=== PATIENT | male | born 1965 | race Caucasian/White ===

== ENCOUNTER 2016-04-30 15:02 | Emergency (ER) | payer MEDICARE, MEDICAID ==
[~2016-04-30] VITALS: Ht 180.3 cm; Wt 100.0 kg
[~2016-04-30 15:02] MED LIST: ATEN50TA7 PO; LAMO250T PO; LOVA10TA PO; QTP100T PO; ZAN150T PO; [UNRECOGNIZED DRUG - CODE] PO
[2016-04-30 15:13] VITALS: BP 190/109; PULSE 80; RESP 18; O2SAT 98
--- NOTE | 2016-04-30 15:40 | ED.REPORT ---
HPI-Altered Mental Status Date of Service Apr 30, 2016 ED Provider: Sandy Ferguson MD This is a 51 year old male with a history of hypertension presenting to the emergency department accompanied by mother complaining of abnormal behavior that began 4 days ago. Pt states, "I have not ewelina myself." Reports that began after taking prazosin. Pt unable to provide clear history. Mother states he is not himself. Pt denies illicit drug use, EtOH use, fever, headache, vision changes, nausea, vomiting, numbness, or weakness. He proceeds to say, "I think I am okay." Nursing Notes Stated Complaint: MENTAL STATUS, CONFUSION, SPEECH Chief Complaint: General Complaint Nursing Notes Reviewed: Yes Allergies: Coded Allergies: No Known Allergies (Verified , 04/30/16) Scheduled Atenolol-Expunged Drug, Do Not Renew! (Atenolol-Expunged Drug, Do Not Renew!) 50 Mg Tablet 50 MG PO DAILY LAMOTRIGINE-Expunged Drug, Do Not Renew! (LAMICTAL XR-Expunged Drug, Do Not Renew!) 250 Mg Tab.er.24 150 MG PO HS Lovastatin-Expunged Drug, Do Not Renew! (Lovastatin-Expunged Drug, Do Not Renew! ) 10 Mg Tablet 10 MG PO HS Methylphenidate-Expunged Drug, Do Not Renew! (Ritalin-Expunged Drug, Do Not Renew!) 20 Mg Tablet 20 MG PO BID QUEtiapine-Expunged Drug, Do Not Renew! (SEROquel-Expunged Drug, Do Not Renew!) 100 Mg Tablet 150 MG PO HS Ranitidine 150 MG Tablet (Zantac 150 MG Tablet) 150 Mg Tab 150 MG PO BID General Time Seen by MD: 15:35 Chief Complaint Not acting right Hx Obtained From: Patient Arrived By: Walk-in Sudden in Onset?: Yes Onset Occurred: 4 days ago Symptom Duration: Since onset Severity: Current: No pain currently Pertinent Negative: Pt denies other symptoms Recent Healthcare: No recent doctor visit, No recent hospitalization Similar Sx Previous: No Risk Factors NIH Stroke Scale NIHSS Score: 0 Time NIHSS Performed: 15:51 Date NIHSS Performed: Apr 30, 2016 Past Medical History Past Medical History PTSD Reports: Hypertension Past Surgical History Denies Social History Alcohol Use: Denies alcohol use Drug Use: Denies drug use Ambulatory Status Independent Review of Systems Unable to Obtain ROS Mental status (limited ) Respiratory: Denies: Non-productive cough, Shortness of breath GI: Denies: Abdominal pain, Constipation, Diarrhea, Nausea, Vomiting Neurologic: Denies: Headache, Numbness Psychiatric: Reports: Confusion Physical Exam Initial Vital Signs Vital Signs (First) Date Time Temp Pulse Resp B/P Pulse Ox O2 Delivery O2 Flow Rate FiO2 04/30/16 15:13 36.5 80 18 190/109 98 Room Air Initial VS: Reviewed ENT: Mucous membranes moist, Conjunctiva normal, No scleral icterus Extremities: Vascular intact, Neuro intact, No swelling, No tenderness Skin: Warm General/Constitutional: Awake Head / Eyes: PERRL Neck: Atraumatic, Supple, No meningismus, Full range of motion, No swelling, Non-tender, No midline vertebral tend, No masses, No carotid bruit, Thyroid NL Respiratory / Chest: Breath sounds NL, Breath sounds = bilat, No respiratory distress, No rales, No rhonchi, No wheezing Cardiovascular: Heart rate NL, Regular rhythm, Heart sounds NL, Peripheral circulation NL Neurologic: No motor deficits, No sensory deficits, CN II - XII intact Psychiatric: No hallucinations Rapid, presssured speech, slightly bizarre affect, requires redirection. Interpretation & Diagnostics BRAIN CT IMPRESSION: Normal for age source of altered mental status is not seen. Dictated by: Moose Bentley M.D. on 04/30/2016 at 16:47 Approved by: Moose Bentley M.D. on 04/30/2016 at 16:47 CHEST X-RAY IMPRESSION: Large lung volumes on the lateral view, suspect COPD, no definite pneumonia found. Dictated by: Moose Bentley M.D. on 04/30/2016 at 16:38 Approved by: Moose Bentley M.D. on 04/30/2016 at 16:38 Lab Results Interpretation Result Diagram: 04/30/16 1620 04/30/16 1620 Test 04/30/16 16:20 White Blood Count 11.3th/mm3 (3.8-10.1) Red Blood Count 5.51mil/mm3 (4.40-5.80) Hemoglobin 16.2g/dL (13.8-17.2) Hematocrit 45.8% (41.0-50.0) Mean Corpuscular Volume 83.1fL (81-100) Mean Corpuscular Hemoglobin 29.4pg (27.0-35.0) Mean Corpuscular Hemoglobin Concent 35.4% (32.0-37.0) Red Cell Distribution Width 13.1% (12.3-15.4) Platelet Count 256bil/L (150-400) Neutrophils (%) (Auto) 69.5% (40-74) Lymphocytes (%) (Auto) 19.6% (14-46) Monocytes (%) (Auto) 7.8% (4-12) Eosinophils (%) (Auto) 2.4% (0-5) Basophils (%) (Auto) 0.4% (0-3) Urine Color Yellow (YELLOW) Urine Appearance Clear (CLEAR,HAZY) Urine pH 6.0 (5.0-8.0) Urine Specific [place] 1.020 (1.003-1.035) Urine Protein Negativemg/dL (NEG,TRACE) Urine Glucose (UA) Negativemg/dL (NEGATIVE) Urine Ketones Negativemg/dL (NEGATIVE) Urine Occult Blood Negative (NEGATIVE) Urine Nitrite Negative (NEGATIVE) Urine Bilirubin Negative (NEGATIVE) Urine Urobilinogen Normalmg/dL (NORMAL) Urine Leukocyte Esterase Negative (NEGATIVE) Urine RBC 0-2/hpf (0-2) Urine WBC 0-5/hpf (0-5) Urine Epithelial Cells Occasional/hpf (NONE-MOD) Urine Crystals None seen (NONE SEEN) Urine Bacteria None/hpf (NONE-FEW) Urine Hyaline Casts None/lpf (NONE) Urine Granular Casts None seen (NONE SEEN) Urine Waxy Casts None seen (NONE SEEN) Urine Red Blood Cell Casts None seen (NONE SEEN) Urine White Blood Cell Casts None seen (NONE SEEN) Urine Mucus None seen (None Seen) Urine Trichomonas None seen (NONE SEEN) Urine Yeast None (NONE SEEN) Urinalysis Comment None Urine Culture Reflexed Not indicated Sodium Level 140mEq/L (134-144) Potassium Level 4.0mEq/L (3.5-5.2) Chloride Level 103mEq/L (97-108) Carbon Dioxide Level 24mmol/L (18-29) Blood Urea Nitrogen 14mg/dL (6-24) Creatinine 0.72mg/dL (0.76-1.27) Estimat Glomerular Filtration Rate 122mL/min (>59) Glucose Level 93mg/dL (60-99) Calcium Level 8.9mg/dL (8.5-10.1) Magnesium Level 2.1mg/dL (1.6-2.6) Total Bilirubin 0.6mg/dL (0.0-1.2) Aspartate Amino Transf (AST/SGOT) 23U/L (0-50) Alanine Aminotransferase (ALT/SGPT) 36U/L (0-44) Alkaline Phosphatase 67U/L (25-150) Total Protein 7.2g/dL (6.4-8.4) Albumin 4.7g/dL (3.4-5.0) Thyroid Stimulating Hormone (TSH) 2.150uIU/mL (0.450-4.500) Free Thyroxine 1.19ng/dL (0.82-1.77) Hold Romero Top Tube Received (Received) Salicylates Level < 3.0ug/mL (30-250) Acetaminophen Level < 15.0ug/mL Rx (10-25) Alcohol, Quantitative < 10mg/dL (0-10) ECG Interpretation ECG Interpretation: NSR at a rate of [address] elevation T-wave inversion in AVR Time: 16:29 Interpreted by: ED physician Re-Eval/Medical Decision Med Decision/Clinical Course 51-year-old male with past medical history of PTSD, ADHD, depression, hypertension brought in by his mother with concern for altered mental status. Differential diagnosis includes but is not limited to methamphetamine intoxication versus other medication overdose versus alcohol withdrawal versus electrolyte abnormality. Tox screen is positive for amphetamines. CT head is normal. CBC and CMP are unremarkable. While patient is not acting completely normally at this time, he is also not gravely disabled. He has no SI or HI. I feel he is safe to go home. I have advised him that the amphetamine he is taking for his ADHD may be causing him to feel confused. I have advised him not to take anymore. He is aware and amenable to discharge and will follow up with his primary care physician. Re-Evaluation/Progress : Time of Eval: 17:25 Re-Evaluation/Progress Note: Discussed lab and imaging results with pt. Plan for discharge, all questions addressed. Counseled Regarding: Diagnosis, Lab results, Need for follow-up, When/why to return to ED Patient Discharge & Departure Impression: Primary Impression: Bizarre behavior Disposition: Home Discharge Condition All VS Reviewed: Yes Condition: Stable Additional Instructions: Your lab and imaging results were reassuring today. Follow up with your primary care provider, call tomorrow to schedule an appointment. Return to the emergency department if you develop any new or worsening symptoms. Referrals: Janet Marti PA-C (PCP) Scribe Attestation Portions of this note were transcribed by Boom Fernandez. I, Dr. Ferguson personally performed the history, physical exam and medical decision-making; I reviewed and confirmed the accuracy of the information in the transcribed note. Signed by: Boom Fernandez. 04/30/2016, 23:00. Sandy Ferguson MD Apr 30, 2016 15:40 BOOM FERNANDEZ Apr 30, 2016 15:53
[2016-04-30] MEDS ORDERED: 0.9% Sodium Chloride 1,000 ML IV ONE (15:54)
[2016-04-30 16:32] LABS: BASOPHILS % (AUTO) 0.4 % (0-3); EOSINOPHILS % (AUTO) 2.4 % (0-5); MONOCYTES % (AUTO) 7.8 % (4-12); Mean Corpuscular Hemoglobin 29.4 pg (27.0-35.0); Mean Corpuscular Volume 83.1 fL (81-100); NEUTROPHILS % (AUTO) 69.5 % (40-74); Platelet Count 256 bil/L (150-400)
--- NOTE | 2016-04-30 16:40 | DRSVH ---
PROCEDURE: X-RAY CHEST, TWO VIEWS ([id number]) INDICATIONS: altered TECHNIQUE: 2 views of the chest were acquired. COMPARISON: [facility], , CHEST 1VW (PORTABLE), 12/23/2011, 19:32. [facility], CR, CHEST 1VW (PORTABLE), 08/20/2011, 20:28. FINDINGS: Surgical changes and devices: None. Lungs and pleura: No pleural effusions or pneumothorax. Lungs are clear. Mediastinum: Mediastinal contours are normal. Heart size is normal. Bones and chest wall: No suspicious bony abnormalities. Soft tissues appear unremarkable. IMPRESSION: Large lung volumes on the lateral view, suspect COPD, no definite pneumonia found. Dictated by: Moose Bentley M.D. on 04/30/2016 at 16:38 Approved by: Moose Bentley M.D. on 04/30/2016 at 16:38
--- NOTE | 2016-04-30 16:49 | DRSVH ---
PROCEDURE: CT BRAIN WITHOUT CONTRAST ([id number]) INDICATIONS: altered TECHNIQUE: Noncontrast 4.5 mm thick angled axial sections acquired from the foramen magnum to the vertex, with c oronal reformats. COMPARISON: None. FINDINGS: Image quality: Excellent. CSF spaces: Basal cisterns are patent. No extra-axial fluid collections. Ventricles are normal in size and shape. Brain: No midline shift. No intracranial masses or hemorrhage. Boyd-white matter interface is norm al. Skull and face: Calvarium and visualized facial bones are intact, without suspicious lesions. Sinuses: Visualized sinuses and mastoids are clear. IMPRESSION: Normal for age source of altered mental status is not seen. Dictated by: Moose Bentley M.D. on 04/30/2016 at 16:47 Approved by: Moose Bentley M.D. on 04/30/2016 at 16:47
[2016-04-30 16:53] LABS: APPEARANCE,URINE CLEAR (CLEAR,HAZY); COLOR,URINE YELLOW (YELLOW); OCCULT BLOOD,URINE NEGATIVE (NEGATIVE); UROBILINOGEN,URINE NORMAL (NORMAL)
[2016-04-30 16:54] LABS: Magnesium 2.1 mg/dL (1.6-2.6)
[2016-04-30 17:44] VITALS: BP 172/95; PULSE 71; RESP 16; O2SAT 98
== END 2016-04-30 17:45 | disposition home or self-care (01) ==
LOC: SED 15:02
DX: F91.8 Other conduct disorders (principal); I10 Essential (primary) hypertension; F43.10 Post-traumatic stress disorder, unspecified; F90.9 Attention-deficit hyperactivity disorder, unspecified type; F32.9 Major depressive disorder, single episode, unspecified
CPT/HCPCS: 36415; 70450; 71020; 80053; 81000; 83735; 84439; 84443; 85025; 93005; 96360; 99285; G0463; G0480; J7030